=== PATIENT | female | born 1995 | race Caucasian/White ===

== ENCOUNTER 2019-05-19 11:43 | Observation (INO) | payer OTHER, SELFPAY ==
[2019-05-19] MEDS ORDERED: Ondansetron PF 4 MG/2 ML Vial IVP SCH (12:15)
[2019-05-19] MEDS ORDERED: Morphine 4 MG/ML VIAL SLOW IVP SCH ×2 (12:15→15:15)
[2019-05-19] MEDS: Lactated Ringer's 1,000 ML IV SCH ×2 (12:30→13:40)
[2019-05-19 12:38] VITALS: BMI 35.3
--- NOTE | 2019-05-19 12:55 | PDOC.FPROB ---
FMR OB H&P: HPI - History of Present Illness Chief Complaint: flank pain History of Present Illness: 23 yo WF at 33.6 wk. Presents from clinic with CC of left flank pain, nausea, and vomiting. States she was seen at [facility] ER over the weekend for same sx and diagnosed with a kidney stone. She was given [place] 10 mg tabs and d/c home. Pain worsened today prior to evaluation at clinic and was sent to L&D for evaluation. Stated [place] was not helping. patient states she had not received renal US at [facility]. Primary Care Physician: MEGHANA Ramirez FMR OB H&P: Current - Care : 2 Para: 0010 Gestational age: 33.6 Due date: 07/02/2019 Dating Criteria: LMP/7.4 wk US Course/Complications: intermittent care, poor follow up, nephrolithiasis, threatened AB, FMR OB H&P: History - Past Medical History PMH: None - OB History OB History: SAB x1 - SCHOOL OPERATIONS MANAGER History SCHOOL OPERATIONS MANAGER History: None - Surgical History Sx History: tonislectomy - Social History Social History: smoked prior to , none during no alcohol or tobacco. - Family History Family History: HTN FMR OB H&P: Medications - Current Home Medications: Medication Instructions Recorded Confirmed Type No Known 09/08/13 05/19/19 History Allergies/Adverse Reactions: Allergies Allergy/AdvReac Type Severity Reaction Status Date / Time No Known Allergies Allergy Verified 05/19/19 12:39 FMR OB H&P: ROS - Review of Systems General: denies: fever/chills, weight/appetite/sleep changes Eyes: denies: eye pain, vision changes ENT: denies: nasal congestion, rhinorrhea Cardiovascular: denies: chest pain, palpitation Respiratory: denies: cough, congestion Gastrointestinal: reports: abdominal pain, nausea, vomiting Genitourinary (Female): denies: incontinence, dysuria, hematuria, polyuria Musculoskeletal: denies: pain, stiffness Neurologic: denies: numbness, syncope Integumentary: denies: itching, rash Breast: denies: lumps, bumps Endocrine: denies: cold intolerance, heat intolerance Hematologic/Lymphatic: denies: prolonged or excessive bleeding, enlarged lymph nodes Psychological: denies: depression, anxiety FMR OB H&P: Vital Signs - Maternal Vital signs: Vital Signs - First Documented Temp 98.7 F 05/19/19 12:08 resp 22, BP 125/75, pulse 78 - Heart Tones Baseline: 140 Variability: moderate Acceleration: present Deceleration: absent Category: category 1 [place] contractions every: none FMR OB H&P: Physical Exam - Physical Exam General: NAD, awake, alert and oriented Neck: supple Chest: non-tender to palpation, no lesions Breast: symmetric, non-tender Heart: RRR, normal S1/S2 General: CTAB, no respiratory distress Abdomen: soft, gravid, other (left flank TTP) Musculoskeletal: normal gait and station, pulses present Skin: no rash, good tugor Lymphatic: no unusual bruising or bleeding, no purpura Psychiatric: intact recent and remote memory, good judgement and insight - Pelvic Exam Deviation from normal: deferred FMR OB H&P: Results - Labs Lab results: pending FMR OB H&P: A/P - Problem List (1) Nephrolithiasis Current Visit: Yes Status: Acute (2) Current Visit: Yes Status: Acute Qualifiers: Weeks of gestation: 33 weeks Qualified Code(s): Z3A.33 - 33 weeks gestation of Disposition: -Suspected nephrolithiais: CBC, CMP, UA, and renal US. F/U results. Morphine for pain. zofran PRN. - IUP at 33 wk: NST reactive. Dispo: d/c home vs admission pending pain control and lab/US results. Discussion: Date/Time: 05/19/19 1250 This H&P was discussed with Dr. Bravo who agree with the above documentation and plan.
[2019-05-19] MEDS ORDERED: Morphine 4 MG/ML VIAL ONE (13:35)
[2019-05-19 13:36] LABS: #Eosinphils 0.1 thou/uL (0.0-0.7); #Lymphocytes 1.1 thou/uL (1.20-3.40); #Monocytes 0.8 thou/uL (0.11-0.59); #Neutrophils 17.7 thou/uL (1.40-6.50); %Basophils 0.2 % (0.0-1.0); %Eosinophils 0.4 % (0.0-10.0); %Lymphocytes 5.6 % (21.0-51.0); %Monocytes 4.1 % (0.0-10.0); %Neutrophils 89.7 % (42.0-75.0); Hemoglobin 11.8 g/dL (12.0-16.0); Mean Corpuscular HGB CONC 33.2 g/dL (32.0-36.0); Mean Corpuscular Hemoglobin 30.1 pg (27.0-31.0); Mean Corpuscular Volume 90.8 fL (78.0-98.0); Mean Platelet Volume 8.8 fL (7.4-10.4); Platelet Count 182 thou/uL (130-400); RBC Distribution Width 11.1 % (11.5-14.5); Red Blood Cell (RBC) Count 3.91 mill/uL (4.20-5.40); White Blood Cell (WBC) Count 19.7 thou/uL (4.8-10.8)
[2019-05-19 13:48] LABS: ALT (SGPT) 19 U/L (8-55); AST (SGOT) 18 U/L (5-34); Albumin 3.5 g/dL (3.5-5.0); Alkaline Phosphatase 148 U/L (40-150); Anion Gap 15 mmol/L (10-20); BUN (Urea Nitrogen) 9 mg/dL (7.0-18.7); Bilirubin, Total 0.2 mg/dL (0.2-1.2); Calc. Creatinine Clearance 202 mL/min (70-130); Calcium 8.5 mg/dL (7.8-10.44); Carbon Dioxide 21 mmol/L (22-29); Chloride 106 mmol/L (98-107); Estimated GFR-MDRD Greater than 90; Globulin 3.1 g/dL (2.4-3.5); Glucose 81 mg/dL (70-105); Potassium 3.5 mmol/L (3.5-5.1); Protein, Total 6.6 g/dL (6.0-8.3); Sodium 138 mmol/L (136-145)
[2019-05-19 14:53] LABS: Bilirubin Negative (Negative); Blood, Urine Large (Negative); Clarity CLEAR (Clear); Glucose, Urine (Dipstick) Negative (Negative); Leukocyte Trace (Negative); Nitrite Negative (Negative); Protein, Urine (Dipstick) Negative (Neg-Trace); Specific Gravity, Urine 1.025 (1.002-1.036)
[2019-05-19 15:01] LABS: Bacteria/HPF None Seen HPF (None Seen); RBC/HPF 21-50 HPF (0-3); Squamous Epithelial 0-3 HPF (0-3); WBC/HPF 0-3 HPF (0-3)
[2019-05-19 15:04] LABS: Pathc Cast-AUWi Flag 3.12 (0-2.49)
[2019-05-19 15:12] LABS: Hyaline Casts/LPF 0-3 HYALINE CAST LPF (0-3 Hyaline); Other Casts/LPF None Seen LPF (0-3 Hyaline)
[2019-05-19 15:13] LABS: Urine Culture Reflex Yes Yes
--- NOTE | 2019-05-19 15:43 | ULT ---
ULTRASOUND RETROPERITONEUM COMPLETE: (RENAL) DATE: 05/19/2019. HISTORY: A 23-year-old female with flank pain. Evaluate for nephrolithiasis. FINDINGS: Please note that ultrasound is relatively insensitive for the detection of urolithiasis, both nephrol ithiasis and especially ureterolithiasis. Furthermore, there is shadowing from adjacent bowel gas ob scuring much of the right kidney. The portions of the right kidney that are visualized demonstrate m oderate dilation of the collecting system. The right kidney is measured as 12 x 6 x 6 cm. There is mild dilation of the left renal collecting system. The left kidney is measured as 13 x 7 x 6 cm. It is also partially obscured by shadowing from adjacent ribs. The urinary bladder is empty, and canno t be evaluated. IMPRESSION: 1. Bilateral hydronephrosis, moderate on the right and mild on the left. 2. Cannot determine whether this is due to obstructive uropathy (especially on the right), or is ent irely due to hydronephrosis of . VIVIANE Diaz POS: TPC
[2019-05-19] MEDS ORDERED: Acetaminophen 325 MG TAB PO PRN (16:01)
[2019-05-19] MEDS ORDERED: HYDROcodone/Acetaminophen 5/325 mg Tablet PO PRN ×2 (16:01)
[2019-05-19] MEDS ORDERED: Calcium Carbonate 500 MG ChewTAB PO PRN (16:01)
[2019-05-19] MEDS ORDERED: Acetaminophen 650 MG Suppository PR PRN (16:01)
[2019-05-19] MEDS ORDERED: Sodium Chloride 0.9% 10 ML ONE (23:10)
[2019-05-20] MEDS ORDERED: Morphine 2 MG/ML SYRINGE ONE (00:53)
--- NOTE | 2019-05-20 09:30 | PDOC.FM ---
- Subjective Subjective: 23 yo female at 34 wk is seen at bedside this AM. Patient had BPP/NST that was reactive at 0300 this AM. Patient reports that her pain is resolved and she no longer has dysuria or hematuria. She reports she is feeling much improved from yesterday. Patient denies headache, n/v/d, vaginal bleeding, discharge, or contractions. No other complaints. - Objective Vital Signs & Weight: Vital Signs (12 hours) Temp Pulse Resp BP Pulse Ox 05/20/19 08:52 98.4 F 77 20 98/54 L 97 Weight Weight 87.543 kg Result Diagrams: 05/20/19 14:21 05/19/19 13:17 Phys Exam - Physical Examination Constitutional: NAD HEENT: moist MMs Respiratory: no wheezing, clear to auscultation bilateral Cardiovascular: RRR, no significant murmur Gastrointestinal: soft, non-tender, no distention, positive bowel sounds Left CVA tenderness Musculoskeletal: no edema, pulses present Neurological: non-focal, moves all 4 limbs Psychiatric: normal affect, A&O x 3 Skin: no rash, cap refill <2 seconds Dx/Plan (1) Nephrolithiasis Status: Acute (2) Status: Acute Qualifiers: Weeks of gestation: 33 weeks Qualified Code(s): Z3A.33 - 33 weeks gestation of - Plan Plan: 1. Nephrolithiasis - Suspected on history and presentation - Urine straining pending - Likely passed stone at this time. - Continue supportive management 2. - IUP 34 weeks - Reactive NST this AM - Recommend continued outpatient follow up Disposition: Stable, will plan for discharge today. Addendum - Attending - Attending Attestation Date/Time: 05/20/19 3860 I personally evaluated the patient and discussed the management with Dr. Clancy I agree with the History, Examination, Assessment and Plan documented above with any addition or exceptions noted below - Patient feeling better. Minimal pain. No further hematuria. Afebrile VSS A/P: 1) Nephrolithiasis- appears to have passed the stones. Pain well controlled. Will d/c home with close follow- up. 2) IUP @ 33 6/7 weeks- follow-up in 1 [place] at [facility]
[2019-05-20 12:17] VITALS: BP 103/57; TEMP 98.1
[2019-05-20 14:40] LABS: #Eosinphils 0.1 thou/uL (0.0-0.7); #Lymphocytes 1.5 thou/uL (1.20-3.40); %Basophils 0.2 % (0.0-1.0); %Eosinophils 1.2 % (0.0-10.0); %Lymphocytes 12.9 % (21.0-51.0); %Monocytes 8.3 % (0.0-10.0); %Neutrophils 77.4 % (42.0-75.0); Hemoglobin 10.3 g/dL (12.0-16.0); Mean Corpuscular HGB CONC 33.5 g/dL (32.0-36.0); Mean Corpuscular Hemoglobin 30.8 pg (27.0-31.0); Mean Corpuscular Volume 91.7 fL (78.0-98.0); Mean Platelet Volume 8.6 fL (7.4-10.4); Platelet Count 176 thou/uL (130-400); RBC Distribution Width 11.3 % (11.5-14.5); Red Blood Cell (RBC) Count 3.35 mill/uL (4.20-5.40); White Blood Cell (WBC) Count 11.6 thou/uL (4.8-10.8)
--- NOTE | 2019-05-21 05:15 | DIS ---
DATE OF ADMISSION: 05/19/2019 DATE OF DISCHARGE: 05/20/2019 RESIDENT: Suraj Clancy MD. ADMITTING ATTENDING: Dr. Bravo. CONSULTATIONS: None. PROCEDURES: On 05/19/2019, patient underwent a renal ultrasound that showed bilateral hydronephrosis, moderate on the right and mild on the left, cannot determine whether this is due to obstructive or entirely due to hydronephrosis of . PRIMARY DIAGNOSES: 1. Nephrolithiasis. 2. Third trimester . DISCHARGE MEDICATIONS: 1. vitamin. 2. Acetaminophen 650 mg p.o. q.4 hours. DISCONTINUED MEDICATIONS: None. HISTORY OF PRESENT ILLNESS AND HOSPITAL COURSE: The patient is a 23-year-old white female, G2, P0-0-1-0 at 33 weeks and 6 days gestation, who presents to our clinic with a chief complaint of left flank pain with nausea and vomiting. The patient was seen at [facility] over the weekend with same symptoms, diagnosed with a kidney stone. The patient was given [place] 10 mg tabs and discharged home. The patient states the pain worsened prior to admission and was sent to L and D for evaluation. The patient stated that [place] was not helping at that time. During this hospitalization, the patient did require some doses of morphine for pain control. She did have a CBC that had a white blood cell count of 19.7, it down trended to 11.6 on day of discharge. Her hemoglobin and hematocrit stayed stable and her urinalysis did show ketones positive, blood positive, leukocyte esterase trace, urine red blood cells 21-50 with a culture pending at this time. The patient reports that she believes that the stone did pass while she was in the hospital as her symptoms discontinued as well as hematuria. The patient remained afebrile during the entire hospitalization with normotensive vital signs as well as normal pulses. The patient was counseled extensively on return precautions as well as further treatment and evaluation options following her . The patient did have a stone analysis that was sent off and she will be followed up with that as an outpatient. Otherwise, the patient tolerated the hospitalization well and was discharged in appropriate condition. DISPOSITION: Stable. DISCHARGE INSTRUCTIONS: Location: She will be discharged home in the care of herself and her family. Diet: Will be as tolerated with pertinent precautions. Activity: As tolerated as well with precautions. Followup: Will be with her primary care providers at [facility] in the next 1-3 days to further discuss her routine care as well as her followup for a nephrolithiasis. Job ID: [id number] NILTON
== END 2019-05-20 15:45 | disposition home health service (06) ==
LOC: L&D 11:43 → INTOOBSV 11:43 → 3SW 19:58
PROVIDERS: ADMIT Family Medicine; ATTEND Family Medicine
DX: O26.833 Pregnancy related renal disease, third trimester (principal); N13.2 Hydronephrosis with renal and ureteral calculous obstruction; Z3A.33 33 weeks gestation of pregnancy; Z87.891 Personal history of nicotine dependence
CPT/HCPCS: 36415; 59025; 76770; 80053; 81001; 85025; 87086; 96374; 96375; 96376; 99285; G0378; J2270; J2405

== ENCOUNTER 2019-07-01 19:30 | Inpatient (IN) | payer BC, OTHER ==
[2019-07-01] MEDS: NS w/ Oxytocin 10 units 500 ML IV SCH (20:25)
[2019-07-01] MEDS ORDERED: Misoprostol 200 MCG TAB PR PRN (20:56)
[2019-07-01] MEDS ORDERED: NS / Oxytocin 40 units/1000ml 1,000 ML IV PRN (20:56)
[2019-07-01] MEDS ORDERED: Lidocaine 1% (PF) 30 ML VIAL SC PRN (20:56)
[2019-07-01] MEDS ORDERED: Ondansetron PF 4 MG/2 ML Vial IVP PRN (20:56)
[2019-07-01] MEDS ORDERED: Acetaminophen 500 MG TAB PO PRN (20:56)
[2019-07-01] MEDS ORDERED: hydrALAZINE 20 MG/ML VIAL SLOW IVP PRN (20:56)
[2019-07-01] MEDS ORDERED: Promethazine HCl 25 MG/ML VIAL IM PRN (20:56)
[2019-07-01] MEDS ORDERED: Ibuprofen 800 MG TAB PO PRN (20:56)
[2019-07-01] MEDS ORDERED: Butorphanol Tartrate 1 MG/ML VIAL SLOW IVP PRN (20:56)
[2019-07-01] MEDS: Lactated Ringer's 1,000 ML IV SCH (21:00)
[2019-07-01] MEDS ORDERED: NS w/ Oxytocin 10 units 500 ML IV SCH (21:00)
[2019-07-01 21:18] VITALS: BMI 35.8
[2019-07-01 21:55] LABS: Hemoglobin 11.8 g/dL (12.0-16.0); Mean Corpuscular Hemoglobin 28.6 pg (27.0-31.0); Mean Corpuscular Volume 84.2 fL (78.0-98.0); Mean Platelet Volume 9.3 fL (7.4-10.4); Platelet Count 216 thou/uL (130-400); RBC Distribution Width 12.1 % (11.5-14.5); Red Blood Cell (RBC) Count 4.12 mill/uL (4.20-5.40); White Blood Cell (WBC) Count 17.2 thou/uL (4.8-10.8)
[2019-07-01 22:50] LABS: Syphilis Antibody Nonreactive (Nonreactive); Syphilis Antibody Index 0.05 S/CO (<1.00 Non-Reactive)
--- NOTE | 2019-07-01 23:05 | PDOC.FPROB ---
FMR OB H&P: HPI - History of Present Illness Chief Complaint: eIOL History of Present Illness: Aleksandar is a 23yo at 40.0 weeks gestation by LMP/7.4wk sono who presents for elective induction of labor. She states that she has no current complaints. Has been having mild contractions. Denies vaginal bleeding, loss of fluid, and decreased movement. Primary Care Physician: ALMA ROSA Ramirez FMR OB H&P: Current - Care : 2 Para: 0010 Gestational age: 40.0 Due date: 07/01/19 Dating Criteria: LMP / 7.4wk sono - OB Labs Blood type: O RH: positive Antibody Screen: negative HIV: negative RPR: negative HepBsAg: negative Rubella: immune Gonorrhea: negative Chlamydia: negative Pap Smear: Normal GBS: negative H&H: 11.8 / 34.6 Platelets: 216 FMR OB H&P: History - Past Medical History PMH: Nephrolithiasis - OB History OB History: History of spontaneous - PENCILLER History PENCILLER History: Trichomoniasis treated in 1st trimester. - Surgical History Sx History: Tonsillectomy - Social History Social History: Denies smoking, drinking and illicit drug use. - Family History Family History: Non-contributory FMR OB H&P: Medications - Current Home Medications: Medication Instructions Recorded Confirmed Type Docusate Calcium [Surfak] 240 mg PO BID #30 cap 07/04/19 Rx Ibuprofen [Motrin] 800 mg PO Q8HR #30 tab 07/04/19 Rx Vitamin 1 tab PO DAILY #60 tab 07/04/19 Rx Allergies/Adverse Reactions: Allergies Allergy/AdvReac Type Severity Reaction Status Date / Time No Known Allergies Allergy Verified 07/01/19 21:20 FMR OB H&P: ROS - Review of Systems General: denies: fever/chills, weight/appetite/sleep changes, recent trauma Eyes: denies: eye pain, vision changes ENT: denies: nasal congestion, rhinorrhea, sinus pain/pressure Cardiovascular: denies: chest pain, palpitation, edema Respiratory: denies: cough, congestion Gastrointestinal: denies: abdominal pain, indigestion, nausea, vomiting, diarrhea Genitourinary (Female): denies: incontinence, dysuria, hematuria, vaginal discharge Musculoskeletal: denies: pain, stiffness Neurologic: denies: numbness, syncope, loss of counsciousness Integumentary: denies: itching, rash Psychological: denies: depression, anxiety FMR OB H&P: Vital Signs - Maternal Vital signs: Vital Signs - First Documented Temp Pulse Resp BP Pulse Ox 98.3 F 92 16 128/74 99 07/01/19 21:11 07/01/19 21:11 07/01/19 21:11 07/01/19 21:11 07/01/19 21:11 - Heart Tones Baseline: 140 Variability: moderate Acceleration: present Deceleration: absent [place] contractions every: 3-5 FMR OB H&P: Physical Exam - Physical Exam General: NAD, awake, alert and oriented HEENT: normocephalic and atraumatic, PERRLA, EOMI, conjunctiva clear, grossly normal vision, grossly normal hearing Neck: supple, FROM Chest: non-tender to palpation Heart: RRR, normal S1/S2, no murmurs/rubs/gallops, pulses present General: CTAB, no respiratory distress, good air movement, no rales/rhonchi, no wheezing Abdomen: soft, gravid, non-tender Musculoskeletal: pulses present, FROM in all four extremities Neurological: no tremor, no focal deficit Skin: no rash, good tugor Psychiatric: intact recent and remote memory, good judgement and insight, normal mood and affect FMR OB H&P: Results - Labs Lab results: Laboratory Results - last 24 hr 07/01/19 07/01/19 07/01/19 21:45 21:45 21:45 WBC 17.2 H RBC 4.12 L Hgb 11.8 L Hct 34.7 L MCV 84.2 MCH 28.6 MCHC 34.0 RDW 12.1 Plt Count 216 MPV 9.3 Syphilis IgG/IgM Ab Nonreactive Blood Type O POSITIVE Antibody Screen NEGATIVE 07/01/19 22:22 WBC RBC Hgb Hct MCV MCH MCHC RDW Plt Count MPV Syphilis IgG/IgM Ab Blood Type O POSITIVE Antibody Screen FMR OB H&P: A/P - Problem List (1) Term Status: Acute Code(s): Z34.90 - ENCNTR FOR SUPRVSN OF NORMAL , UNSP, UNSP TRIMESTER (2) Elective induction of labor planned Status: Acute Code(s): [id number] - Disposition: 1. Term at 40.0 weeks, late term induction of labor. * Gamble score of 8, favorable for induction. * Pitocin for induction of labor started at 2220 on 07/01/19. * Will continue to monitor FHTs and uterine contractions. * Will continue to evaluate for pain management. Discussion: Date/Time: 07/01/19 1282 This H&P was discussed with [] and [] who agree with the above documentation and plan. Addendum - Attending - Attending Attestation Date/Time: 07/05/19 1001 I personally evaluated the patient and discussed the management with Dr. Reddy I agree with the History, Examination, Assessment and Plan documented above with any addition or exceptions noted below.
[2019-07-01 23:14] LABS: HBSAg Index 0.27 S/CO (0-0.99); Hep B Surf Ag Non-Reactive S/CO (NonReactive)
--- NOTE | 2019-07-02 00:45 | PDOC.LDPN ---
Labor & Delivery Progress Note - Subjective Subjective: comfortable, no concerns - Objective Vital signs reviewed and normal: yes General: NAD, resting Uterine fundus: non tender SVE: 00:00 Dilation: 3 / 80% / -2 FHT: category 1, variability present [place] contractions every: 3-5 minutes - Assessment (1) Term Code(s): Z34.90 - ENCNTR FOR SUPRVSN OF NORMAL , UNSP, UNSP TRIMESTER Current Visit: Yes Status: Acute (2) Elective induction of labor planned Code(s): [id number] - Current Visit: Yes Status: Acute Plan: continue plan of care (with pitocin for induction. Currently at 8. Repeat exam at 03:00)
[2019-07-02] MEDS: Lactated Ringer's 1,000 ML IV SCH ×3 (00:49→12:33)
--- NOTE | 2019-07-02 03:30 | PDOC.LDPN ---
Labor & Delivery Progress Note - Subjective Subjective: comfortable, painful contractions - Objective Vital signs reviewed and normal: yes General: NAD, resting, breathing through contractions Uterine fundus: palpable contractions SVE: 0300 Dilation: 3 / 80% / -2 FHT: category 1 (FHT 150s), variability present [place] contractions every: 3-5, difficult to monitor as she is sitting/moving - Assessment (1) Term Code(s): Z34.90 - ENCNTR FOR SUPRVSN OF NORMAL , UNSP, UNSP TRIMESTER Current Visit: Yes Status: Acute (2) Elective induction of labor planned Code(s): [id number] - Current Visit: Yes Status: Acute Plan: continue plan of care, other (pitocin for induction (currently at 14) )
[2019-07-02] MEDS ORDERED: Fentanyl 4 mcg/Bup 0.1% Cadd 0 ML ONE (03:40)
[2019-07-02] MEDS ORDERED: Fentanyl 4 mcg/Bup 0.1% Cadd 100 ML ONE ×2 (03:41→12:27)
[2019-07-02] MEDS ORDERED: ePHEDrine/0.9% NaCl/PF SYRINGE 50 mg/10 ml SLOW IVP PRN (04:15)
[2019-07-02] MEDS ORDERED: Promethazine HCl 25 MG/ML VIAL IM PRN (04:15)
[2019-07-02] MEDS ORDERED: Ondansetron PF 4 MG/2 ML Vial IVP PRN (04:15)
[2019-07-02] MEDS ORDERED: Communication Order-Pharmacy FS SCH (04:15)
[2019-07-02] MEDS ORDERED: Naloxone HCl 0.4 mg/ml Vial IVP PRN ×2 (04:15)
[2019-07-02] MEDS ORDERED: Lactated Ringer's 500 ML IV PRN (04:15)
[2019-07-02] MEDS ORDERED: Fentanyl 4 mcg/Bupivacaine 0.1% Cassette 100 ML EPIDURAL SCH (04:15)
[2019-07-02] MEDS ORDERED: diphenhydrAMINE 50 MG/ML VIAL IVP PRN (04:15)
--- NOTE | 2019-07-02 06:56 | PDOC.LDPN ---
Labor & Delivery Progress Note - Subjective Subjective: comfortable - Objective Vital signs reviewed and normal: yes General: NAD, resting Uterine fundus: non tender SVE: @0500 4 / -2 FHT: category 1, variability present [place] contractions every: 2-3 min Other exam findings: epidural in place - Assessment (1) Term Code(s): Z34.90 - ENCNTR FOR SUPRVSN OF NORMAL , UNSP, UNSP TRIMESTER Current Visit: Yes Status: Acute (2) Elective induction of labor planned Code(s): [id number] - Current Visit: Yes Status: Acute Plan: continue plan of care (Pitocin at 16)
--- NOTE | 2019-07-02 08:04 | PDOC.LDPN ---
Addendum entered and electronically signed by Ngoc Duarte DO 07/02/19 09:09: Original Note: Labor & Delivery Progress Note - Subjective Subjective: comfortable, no concerns - Objective Vital signs reviewed and normal: yes General: NAD, breathing through contractions Uterine fundus: non tender SVE: Dr. Duarte @ 0700 Dilation: 6 Effacement: 90% Station: -1 FHT: category 1 (Moderate variability, acels present, no decels. ), variability present [place] contractions every: 3-5 min Other exam findings: intact membranes - Assessment (1) Elective induction of labor planned Code(s): [id number] - Current Visit: Yes Status: Acute (2) Term Code(s): Z34.90 - ENCNTR FOR SUPRVSN OF NORMAL , UNSP, UNSP TRIMESTER Current Visit: Yes Status: Acute Plan: continue plan of care, labor augmentation, pitocin for augmentation -: Pt is a 23 y/o , at 40.1 wks gestation here for elective induction of labor. 1. IUP, term -40.1 wks -Trich treated in 1st trimester 2. IOL -Continue Pit augmentation -Patient making appropriate progress. -@0700 SVE /-1, recheck in X2 hours. -Intact membranes -Bloody show Dispo: Continue current management of induction of labor. Recheck in X2 hours.
--- NOTE | 2019-07-02 09:10 | PDOC.LDPN ---
Labor & Delivery Progress Note - Subjective Subjective: comfortable, no concerns - Objective Vital signs reviewed and normal: yes General: NAD, resting, breathing through contractions Uterine fundus: non tender SVE: Dr. Kilgore @ 0905 Dilation: 6 Effacement: 90% Station: -1 FHT: category 1 (Moderate variability, acels present, no decels. FHT's 140), variability present [place] contractions every: 3-5 minutes Other exam findings: SROM just prior to entry to L&D room. AROM: clear fluid - Assessment (1) Elective induction of labor planned Code(s): [id number] - Current Visit: Yes Status: Acute (2) Term Code(s): Z34.90 - ENCNTR FOR SUPRVSN OF NORMAL , UNSP, UNSP TRIMESTER Current Visit: Yes Status: Acute Plan: continue plan of care, labor augmentation, pitocin for augmentation -: Pt is a 23 y/o , at 40.1 wks gestation here for elective induction of labor. 1. IUP, term -40.1 wks -Trich treated in 1st trimester 2. IOL -Continue Pit augmentation -consider IUPC at next check if no change. -@0905 SVE /[address] Kilgore, recheck in X2 hours. -SROM @0900 Dispo: Continue current management of induction of labor. Consider IUPC if no change at next check. Recheck in X2 hours.
[2019-07-02] MEDS: NS w/ Oxytocin 10 units 500 ML IV SCH (10:58)
--- NOTE | 2019-07-02 11:11 | PDOC.LDPN ---
Labor & Delivery Progress Note - Subjective Subjective: comfortable, no concerns - Objective Vital signs reviewed and normal: yes General: NAD, breathing through contractions Uterine fundus: non tender SVE: Nurse Godinez Dilation: 10 Effacement: 100% Station: 1+ FHT: category 1 (Moderate variability, Acels, no decels. few earlys), early decelerations, variability present [place] contractions every: 2-3 minutes - Assessment (1) Elective induction of labor planned Code(s): [id number] - Current Visit: Yes Status: Acute (2) Term Code(s): Z34.90 - ENCNTR FOR SUPRVSN OF NORMAL , UNSP, UNSP TRIMESTER Current Visit: Yes Status: Acute Plan: continue plan of care, labor augmentation, pitocin for augmentation -: Pt is a 23 y/o , at 40.1 wks gestation here for elective induction of labor. 1. IUP, term -40.1 wks -Trich treated in 1st trimester 2. IOL -Continue Pit augmentation -consider IUPC at next check if no change. -@1100 SVE /+1 by Nurse oGdinez -Will continue to let patient labor down with close monitoring. -SROM @0900 Dispo: Continue current management of induction of labor.
[2019-07-02] MEDS: NS / Oxytocin 40 units/1000ml 1,000 ML IV SCH ×2 (13:42→15:53)
[2019-07-02] MEDS ORDERED: hydrALAZINE 20 MG/ML VIAL SLOW IVP PRN (15:03)
[2019-07-02] MEDS ORDERED: Bisacodyl 10 MG SUPP PR PRN (15:03)
[2019-07-02] MEDS ORDERED: Lanolin Ointment 7 GM TUBE TOP PRN (15:03)
[2019-07-02] MEDS ORDERED: Milk Of Magnesia 30 ML UDCUP PO PRN (15:03)
[2019-07-02] MEDS: Ibuprofen 800 MG TAB PO SCH (15:23)
--- NOTE | 2019-07-02 16:08 | OP ---
DATE OF PROCEDURE: 07/02/2019 LOCATION: [place], [place]. ASSISTING PHYSICIAN: Alison Kilgore MD PROCEDURE PERFORMED: Spontaneous vaginal delivery. ANESTHESIA: Epidural and local for repair. QBL: 456 mL. PREOPERATIVE DIAGNOSIS: Term intrauterine with elective induction of labor at 40 weeks. POSTOPERATIVE DIAGNOSIS: Term intrauterine , delivered. INDICATIONS FOR PROCEDURE: A 23-year-old female, G2, P0-0-1-0, presents for induction at term. DESCRIPTION OF PROCEDURE: The patient is a 23-year-old female, G2, P0-0-1-0 at 40 and 1 weeks, who delivered a viable male infant at 1336 hours. Following an uneventful antepartum course, a vigorous male infant was delivered over an intact perineum in the LOP position with compound hand and arm presentation. The anterior shoulder along with the right hand and arm were delivered and then subsequently the remainder of the body was delivered. There was no nuchal cord. The head was held down and the mouth and nares were bulb suctioned. The cord was clamped and cut. Then, cord blood was collected. The placenta delivered intact with three-vessel cord noted. Fundal massage was performed. Pitocin was started and the fundus was noted to be firm. The cervix and vagina were inspected and there was found to be a left hemostatic labial laceration in addition to a right labial laceration, which was repaired with 3-0 Vicryl suture in a running nonlocking fashion. Subsequent to this, hemostasis was noted. I then went to the nursery in good condition for routine care. Apgars were 8 and 9 at 1 and 5 minutes respectively. The patient tolerated delivery well and will go to for routine recovery and care. Job ID: [id number]
--- NOTE | 2019-07-02 16:34 | PDOC.EVN ---
Event Note - Event Note Event Note: I was present, assisted and supervised the of a viable male infant in vertex presentation to this 23 yo @ 40.1 weeks. Nuchal arm noted after delivery of head. Shoulders and body delivered easily. Apgars 8/9. Placenta delivered spontaneously and intact. 3V cord. Right labial laceration repaired with 3-0 vicryl in usual fashion; hemostatic. Mother and infant in stable consition. QBL= 428 mL. Sylwia Ramirez/Magui
[2019-07-02] MEDS: Ferrous Sulfate 325 MG TAB PO SCH (17:11)
[2019-07-02] MEDS: Docusate Calcium (SURFAK) 240 MG CAP PO SCH (20:44)
[2019-07-02] MEDS: Acetaminophen 325 MG TAB PO PRN (20:44)
[2019-07-03] MEDS: Ibuprofen 800 MG TAB PO SCH ×4 (00:03→21:26)
[2019-07-03 06:35] LABS: Hemoglobin 10.9 g/dL (12.0-16.0); Mean Corpuscular HGB CONC 33.1 g/dL (32.0-36.0); Mean Corpuscular Hemoglobin 28.6 pg (27.0-31.0); Mean Corpuscular Volume 86.3 fL (78.0-98.0); Mean Platelet Volume 10.2 fL (7.4-10.4); Platelet Count 170 thou/uL (130-400); RBC Distribution Width 12.1 % (11.5-14.5); Red Blood Cell (RBC) Count 3.83 mill/uL (4.20-5.40); White Blood Cell (WBC) Count 20.8 thou/uL (4.8-10.8)
[2019-07-03] MEDS: Ferrous Sulfate 325 MG TAB PO SCH ×2 (08:39→15:08)
[2019-07-03] MEDS: Prenatal Vitamin 1 TAB PO SCH (08:54)
[2019-07-03] MEDS: Docusate Calcium (SURFAK) 240 MG CAP PO SCH ×2 (08:54→21:26)
[2019-07-03] MEDS ORDERED: Adacel (T-DAP) 0.5 ML SYRINGE IM ONE (09:00)
--- NOTE | 2019-07-03 09:32 | PDOC.PP ---
Post Progress Note Post Day #: 1 Subjective: 23 yo -->1011 delivered via . Pt doing well and pain well controlled without narcotic medication. Does report occasional irritation near laceration with urination. Otherwise no complaints. PO intake tolerated: yes Flatus: no Ambulation: yes Vital Signs (12 hours) Temp Pulse Resp BP Pulse Ox 07/03/19 07:40 97.8 F 85 18 105/64 98 07/03/19 05:00 97.5 F L 85 20 105/56 L 07/03/19 00:00 97.9 F 88 18 112/58 L Weight Weight 88.904 kg - Physical Examination General: NAD Cardiovascular: no m/r/g, RRR Respiratory: clear to auscultation bilaterally Abdominal: + bowel sounds, lochia, no distention, appropriately TTP Neurological: no gross focal deficits Psychiatric: normal affect Result Diagrams: 07/03/19 05:39 Additional Labs: Post Labs Blood Type O POSITIVE 07/01/19 22:22 Hep Bs Antigen Non-Reactive S/CO (NonReactive) 07/01/19 21:45 (1) , delivered Code(s): O80 - ENCOUNTER FOR FULL-TERM UNCOMPLICATED DELIVERY Status: Acute - Assessment/Plan TIUP, delivered - pt doing well and pain currently well controlled - h/h stable and vss - minimal bleeding -continue meeting with data warehouse consultant - plan for likely dc to home tomorrow Addendum - Attending - Attending Attestation Date/Time: 07/03/19 1052 I personally evaluated the patient and discussed the management with Dr. Ramirez I agree with the History, Examination, Assessment and Plan documented above with any addition or exceptions noted below - Patient without complaints. afebrile VSS. A/P: 1) PPD#1 s/p - Continue routine care. Anticipate d/c home in AM
[2019-07-03] MEDS ORDERED: Bupivacaine/Epinephrine 0.25% 30 ML VIAL ONE (11:11)
[2019-07-03] MEDS: Acetaminophen 325 MG TAB PO PRN (17:40)
[2019-07-03 20:22] VITALS: TEMP 98
[2019-07-04] MEDS: Ibuprofen 800 MG TAB PO SCH (05:41)
[2019-07-04] MEDS: Ferrous Sulfate 325 MG TAB PO SCH (07:35)
[2019-07-04] MEDS: Prenatal Vitamin 1 TAB PO SCH (08:01)
[2019-07-04] MEDS: Docusate Calcium (SURFAK) 240 MG CAP PO SCH (08:01)
[2019-07-04 08:27] VITALS: BP 117/68
--- NOTE | 2019-07-04 09:00 | PDOC.PP ---
Post Progress Note Post Day #: 2 Subjective: 23 yo F pp day 2 s/p with rt labial laceration repaired. Pt without complaints. No NVDC. Eating and drinking well, ambulating without issue. Scant lochia. Pt ready to go home. PO intake tolerated: yes Flatus: yes Ambulation: yes Vital Signs (12 hours) Temp Pulse Resp BP Pulse Ox 07/04/19 07:30 98.0 F 72 18 117/68 98 Weight Weight 88.904 kg - Physical Examination General: NAD Cardiovascular: no m/r/g, RRR Respiratory: clear to auscultation bilaterally, non-labored breathing Abdominal: + bowel sounds, lochia, no distention, appropriately TTP Extremities: negative homans (B) Skin: no rash Neurological: no gross focal deficits Psychiatric: normal affect Result Diagrams: 07/03/19 05:39 Additional Labs: Post Labs Blood Type O POSITIVE 07/01/19 22:22 Hep Bs Antigen Non-Reactive S/CO (NonReactive) 07/01/19 21:45 (1) , delivered Code(s): O80 - ENCOUNTER FOR FULL-TERM UNCOMPLICATED DELIVERY Status: Acute - Assessment/Plan TIUP, delivered - pt recovering well - plan for DC to home this afternoon - cont breast feed ad germaine - f/u @ [facility] 2 weeks, discuss PP CC Addendum - Attending - Attending Attestation Date/Time: 07/04/19 0902 I personally evaluated the patient and discussed the management with Dr. Ramirez I agree with the History, Examination, Assessment and Plan documented above with any addition or exceptions noted below - Patient without complaints. Ambulating. Voiding. Afebrile VSS. A/P: 1) PPD#2 s/p - doing well. Plan to d/ c home.
== END 2019-07-04 11:50 | disposition home or self-care (01) | DRG 807 ==
LOC: EDSTATUS 19:30 → L&D 20:16 → 3SW 07-02 16:37
PROVIDERS: ADMIT Family Medicine; ATTEND Family Medicine
PROC: 10E0XZZ Delivery of Products of Conception, External Approach (ICD-10-PCS; principal; 2019-07-02)
PROC: 10907ZC Drainage of Amniotic Fluid, Therapeutic from Products of Conception, Via Natural or Artificial Opening (ICD-10-PCS; 2019-07-02)
PROC: 3E033VJ Introduction of Other Hormone into Peripheral Vein, Percutaneous Approach (ICD-10-PCS; 2019-07-02)
PROC: 0HQ9XZZ Repair Perineum Skin, External Approach (ICD-10-PCS; 2019-07-02)
DX: O32.6XX0 Maternal care for compound presentation, not applicable or unspecified (principal); Z37.0 Single live birth; O70.0 First degree perineal laceration during delivery; Z3A.40 40 weeks gestation of pregnancy
CPT/HCPCS: 36415; 51702; 85027; 86780; 86850; 86900; 86901; 87340; J2590

== ENCOUNTER 2019-07-29 08:48 | Outpatient (CLI) | payer BC, OTHER ==
--- NOTE | 2019-07-29 11:48 | CT ---
CT STONE PROTOCOL: Date: 07/29/19 HISTORY: Acute right flank pain. FINDINGS: Absence of oral and IV contrast reduces the sensitivity of exam, particularly for evaluation of solid organs and bowel. The lung bases are clear. No free air or free fluid is seen in the abdomen or pelvis. No calcified ga llstones are noted. Uterus and ovaries are present. The small bowel loops are not abnormally dilated. A normal appearing appendix is seen. No calculi seen in the kidneys, ureters, or the urinary bladder. No hydroureteronephrosis seen on eit her side. There is a 4 mm calcific density in the right pelvis, which is favored to be a phlebolith rather than a nonobstructing right distal ureteric calculus. No acute osseous abnormalities are seen. IMPRESSION: 1. No definite evidence of obstructive uropathy. 2. Calcific density in the right pelvis is favored to represent a pelvic phlebolith rather than a ri ght distal ureteric calculus. An IVP would be helpful. POS: UMBERTO
== END 2019-07-29 08:49 | disposition home or self-care (01) ==
LOC: TBSIIMAG 08:48
PROVIDERS: ATTEND Nurse Practitioner Family
DX: R10.9 Unspecified abdominal pain (principal); N94.89 Other specified conditions associated with female genital organs and menstrual cycle
CPT/HCPCS: 74176